=== PATIENT | male | born 1945 | race Caucasian/White ===

== ENCOUNTER 2023-12-10 23:36 | Inpatient (IN) | payer BC, MEDICARE ==
[~2023-12-10] VITALS: Ht 167.6 cm; Wt 69.4 kg
[2023-12-11 01:10] LABS: BASOPHILS # (AUTO) 0.1 K/uL (0.0-0.2); BASOPHILS % (AUTO) 0.8 % (0.0-2.0); EOSINOPHILS # (AUTO) 0.1 K/uL (0.0-0.7); EOSINOPHILS % (AUTO) 0.9 % (0.0-6.0); HEMATOCRIT 39 % (39-51); LYMPHOCYTES # (AUTO) 1.2 K/uL (0.8-4.8); MEAN CORPUSCULAR HEMOGLOBIN 31 PG (26.0-33.0); MEAN CORPUSCULAR HGB CONC 34 g/dl (31.0-36.0); MEAN CORPUSCULAR VOLUME 91 fL (80-96); MONOCYTES # (AUTO) 0.9 K/uL (0.1-1.30); MONOCYTES % (AUTO) 8.8 % (2.0-12.0); NEUTROPHILS # (AUTO) 8.2 K/uL (1.8-8.9); NEUTROPHILS % (AUTO) 78.5 % (43.0-81.0); PLATELET COUNT (AUTO) 252 K/uL (150-450); RED BLOOD CELL COUNT(AUTO) 4.24 MIL/uL (4.5-6.0); RED CELL DISTRIBUTION WIDTH 13.7 % (11.5-15.0); WHITE BLOOD COUNT (AUTO) 10.5 K/uL (4.3-11.0)
[2023-12-11 01:28] LABS: APPEARANCE,URINE SLIGHTLY CLOUDY (CLEAR); BILIRUBIN,URINE NEGATIVE (NEGATIVE); BLOOD, URINE NEGATIVE Ery/uL (NEGATIVE); COLOR,URINE YELLOW (YELLOW); KETONES,URINE TRACE mg/dL (NEGATIVE); LEUKOCYTE ESTERASE ,URINE NEGATIVE (NEGATIVE); NITRITE, URINE NEGATIVE (NEGATIVE); PROTEIN,URINE TRACE mg/dl (NEGATIVE); UGLUCOSE NEGATIVE (NEGATIVE)
[2023-12-11] MEDS ORDERED: NITROGLYCERIN 0.4 MG/TAB BOTTLE ONE (01:32)
[2023-12-11] MEDS ORDERED: ASPIRIN 325 MG TABLET ONE (01:32)
[2023-12-11] MEDS: ASPIRIN 325 MG TABLET PO ONE (01:36)
[2023-12-11] MEDS: LORAZEPAM INJ 2 MG/ML VIAL IV ONE (01:37)
[2023-12-11] MEDS: NITROGLYCERIN 0.4 MG/TAB BOTTLE SL ONE (01:37)
[2023-12-11 01:49] LABS: INR 1.08 (0.91-1.10); PARTIAL THROMBOPLASTIN TIME 27.9 SEC (24.3-34.3); PROTHROMBIN TIME 11.4 SECS (9.2-11.1)
[2023-12-11 01:50] LABS: ADD URINE CULTURE NO; BACTERIA,URINE None seen /HPF (None Seen); MUCUS,URINE Few /LPF (None Seen); RBC,URINE NONE SEEN /HPF (0-2); SQUAMOUS EPITHELIAL CELL,UR None Seen /HPF (None Seen); WBC,URINE NONE SEEN /HPF (0-3)
[2023-12-11 02:05] LABS: ALANINE AMINOTRANSFERASE 14 U/L (12-78); ALBUMIN 3.5 g/dL (3.4-5.0); ALKALINE PHOSPHATASE 82 U/L (46-116); ASPARTATE AMINOTRANSFERASE 24 U/L (15-37); BILIRUBIN,DIRECT 0.2 mg/dL (0.0-0.2); BILIRUBIN,TOTAL 0.6 mg/dL (0.2-1.0); CALCIUM, SERUM 8.4 mg/dL (8.5-10.1); CARBON DIOXIDE 30 mmol/L (21-32); CHLORIDE 104 mmol/L (98-107); GLUCOSE 111 mg/dL (74-106); POTASSIUM 4.3 mmol/L (3.5-5.1); SODIUM SERUM 139 mmol/L (136-145); TOTAL PROTEIN, SERUM 6.8 g/dL (6.4-8.2); UREA NITROGEN, BLOOD 31 mg/dL (7-18)
[2023-12-11] MEDS ORDERED: Z GUARD REMEDY 4 OZ OINT TP PRN (05:30)
[2023-12-11] MEDS ORDERED: ONDANSETRON HCL/PF 4 MG/2 ML VIAL IVP PRN (05:30)
[2023-12-11] MEDS ORDERED: ACETAMINOPHEN 325 MG TABLET PO PRN (05:30)
[2023-12-11 08:11] LABS: THYROID STIMULATING HORMONE 1.586 uIU/mL (0.358-3.74)
[2023-12-11] MEDS ORDERED: MIRT7.5T10 PO (08:14)
[2023-12-11] MEDS ORDERED: ISTR40TA PO (08:14)
[2023-12-11] MEDS ORDERED: CARB1CAP7 PO (08:14)
[2023-12-11] MEDS ORDERED: VALS320T2 PO (08:14)
[2023-12-11] MEDS ORDERED: APIX5TAB PO (08:14)
[2023-12-11] MEDS ORDERED: RASA1TAB4 PO (08:14)
[2023-12-11] MEDS ORDERED: CARB1TAB21 PO (08:14)
[2023-12-11] MEDS ORDERED: TAMS-12 PO (08:14)
[2023-12-11] MEDS ORDERED: PANTOPRAZOLE 40 MG TABLET.DR PO ONE (09:53)
[2023-12-11] MEDS ORDERED: ASPIRIN EC 81 MG TABLET.DR PO ONE (09:53)
[2023-12-11] MEDS ORDERED: ENOXAPARIN SODIUM 40 MG/0.4 ML DISP.SYRIN SQ ONE (09:53)
[2023-12-11] MEDS: ENOXAPARIN SODIUM 40 MG/0.4 ML DISP.SYRIN SQ SCH (10:30)
[2023-12-11] MEDS: ASPIRIN EC 81 MG TABLET.DR PO SCH (10:30)
[2023-12-11] MEDS: PANTOPRAZOLE 40 MG TABLET.DR PO SCH (10:30)
[2023-12-11] MEDS ORDERED: CARBIDOPA/LEVODOPA 25/100 MG 1 UDTAB PO PRN (13:30)
[2023-12-11] MEDS: CARBIDOPA/LEV CR 50/200 MG 1 UDTAB.SA PO SCH (14:55)
[2023-12-11] MEDS: APIXABAN 5 MG TABLET PO SCH (17:20)
[2023-12-11] MEDS: IV NS 0.9% 1,000 ML IV PRN (18:40)
[2023-12-11 20:00] VITALS: BP_SYST 101; BP_SYST 132; BP_SYST 97; BP_DIAS 108; BP_DIAS 52; BP_DIAS 80; TEMP 98.1; O2SAT 95; O2SAT 97
[2023-12-11] MEDS: MIRTAZAPINE 15 MG TABLET PO SCH (21:54)
[2023-12-12] VITALS: BP 97/65; TEMP 97.8; O2SAT 97
[2023-12-12 04:00] VITALS: BP 135/81; TEMP 97.5; O2SAT 97
[2023-12-12 07:00] VITALS: BP 143/86; TEMP 97.8; O2SAT 95
[2023-12-12 07:12] LABS: BASOPHILS % (AUTO) 0.7 % (0.0-2.0); EOSINOPHILS # (AUTO) 0.2 K/uL (0.0-0.7); EOSINOPHILS % (AUTO) 2.9 % (0.0-6.0); HEMATOCRIT 39 % (39-51); HEMOGLOBIN 13.1 g/dL (13.5-17.5); LYMPHOCYTES # (AUTO) 2.4 K/uL (0.8-4.8); LYMPHOCYTES % (AUTO) 36.6 % (20.0-44.0); MEAN CORPUSCULAR HEMOGLOBIN 31 PG (26.0-33.0); MEAN CORPUSCULAR HGB CONC 34 g/dl (31.0-36.0); MEAN CORPUSCULAR VOLUME 91 fL (80-96); MONOCYTES # (AUTO) 0.7 K/uL (0.1-1.30); MONOCYTES % (AUTO) 10.2 % (2.0-12.0); NEUTROPHILS # (AUTO) 3.2 K/uL (1.8-8.9); NEUTROPHILS % (AUTO) 49.6 % (43.0-81.0); PLATELET COUNT (AUTO) 238 K/uL (150-450); RED BLOOD CELL COUNT(AUTO) 4.28 MIL/uL (4.5-6.0); RED CELL DISTRIBUTION WIDTH 13.7 % (11.5-15.0); WHITE BLOOD COUNT (AUTO) 6.5 K/uL (4.3-11.0)
[2023-12-12 07:24] LABS: CALCIUM, SERUM 8.5 mg/dL (8.5-10.1); CREATININE 0.7 mg/dL (0.6-1.3); MAGNESIUM 2.1 mg/dL (1.8-2.4); PHOSPHORUS 2.9 mg/dL (2.5-4.9)
[2023-12-12] MEDS: TAMSULOSIN 0.4 MG CAP.SR.24H PO SCH (08:37)
[2023-12-12] MEDS ORDERED: IV NS 0.9% 1,000 ML IV PRN (08:44)
[2023-12-12] MEDS ORDERED: VALSARTAN 40 MG TABLET PO SCH (09:00)
[2023-12-12 11:30] VITALS: BP 123/56; TEMP 98.7; O2SAT 95
== END 2023-12-12 16:26 | disposition home or self-care (01) | DRG 57 ==
LOC: ER 23:41 → EDBD 23:41 → TELE 12-11 07:58
DX: G90.3 Multi-system degeneration of the autonomic nervous system (principal); G20.A1 Parkinson's disease without dyskinesia, without mention of fluctuations; I10 Essential (primary) hypertension; R79.89 Other specified abnormal findings of blood chemistry; I48.91 Unspecified atrial fibrillation; Z91.81 History of falling; Z79.01 Long term (current) use of anticoagulants; Z79.899 Other long term (current) drug therapy
CPT/HCPCS: 36415; 70450-TC; 71045-TC; 80048-TC; 80061-TC; 80076-TC; 81001; 83735-TC; 84100-TC; 84443-TC; 84484-TC; 85025-TC; 85730-TC; 93307-TC; 97116-TC; 97530-TC; A4223; G0378; J1650; J7030